=== PATIENT | female | born 1955 | race Caucasian/White ===

== ENCOUNTER 2020-10-25 12:53 | Emergency (ER) | payer MEDICARE, OTHER ==
[~2020-10-25] VITALS: Ht 175.3 cm; Wt 97.7 kg
[2020-10-25 13:47] LABS: BASOPHILS % (AUTO) 1 % (0-1); EOSINOPHILS % (AUTO) 1 % (1-7); LYMPHOCYTES % (AUTO) 21 % (22-44); MEAN CORPUSCULAR HEMOGLOBIN 34.5 pg (27.0-34.8); MEAN CORPUSCULAR HGB CONC 34.3 g/dL (32.4-35.8); MEAN PLATELET VOLUME 7.9 fL (7.4-10.4); MONOCYTES % (AUTO) 8 % (2-9); NEUTROPHILS % (AUTO) 69 % (42-75); PLATELET COUNT 338 x10^3/uL (130-400); RED BLOOD COUNT 3.26 x10^6/uL (3.82-5.3); RED CELL DISTRIBUTION WIDTH 12.7 % (9.6-15.2)
[2020-10-25 13:54] LABS: MD NO
[2020-10-25 14:00] LABS: ALBUMIN 2.5 g/dL (3.4-5.0); ANION GAP 4 mmol/L (5-15); CALCIUM 8.2 mg/dL (8.5-10.1); CHLORIDE 111 mmol/L (98-107); CREATININE 1.03 mg/dL (0.55-1.02)
[2020-10-25 14:02] LABS: SALICYLATE LEVEL < 1.7 mg/dL (2.8-20.0)
[2020-10-25] MEDS ORDERED: OXYcodone/APAP 5/325MG TABLET PO ONE (14:30)
[2020-10-25] MEDS ORDERED: OXYcodone/APAP 5/325MG TABLET ONE (14:31)
--- NOTE | 2020-10-25 16:10 | NUR ---
REPORT RECEIVED FROM HERBERT [place]. ASSUMING PRIMARY CARE OF PT.
--- NOTE | 2020-10-25 16:49 | NUR ---
PT REPOSITIONED FOR COMFORT. ADDITIONAL BLANKETS AND BEAR HUGGER PROVIDER. PT IS TEARFUL AT THIS TIME. RN WENT OVER POC WITH PT. PT VERBALIZED UNDERSTANDING.
--- NOTE | 2020-10-25 18:12 | NUR ---
PER ERMD PT IS STABLE FOR DC. NO NEED FOR ADMISSION AT THIS TIME. RN WENT INTO ROOM TO RECHECK VS. PT'S BP 90/43 HR 76. RN INFORMED ERMD. INDIGO WOULD LIKE RN TO PROVIDE PT WITH ORAL FLUIDS AND TO RECHECK PT'S BP. RN PROVIDED PT WITH APPLE JUICE. PT SITTING UP DRINKING WITHOUT ANY DISTRESS. RN TO HELP PT GET DRESS AFTER PT FINISHES APPLE JUICE.
[2020-10-25 18:46] VITALS: BP 98/45
--- NOTE | 2020-10-25 18:46 | NUR ---
RN HELPED PT GET DRESSED. PT DC HOME IN A STABLE CONDITION. TAXI VOUCHER PROVIDED TO PT. PT WHEELED OUT TO ER ENTRANCE TO AWAITING TAXI. RN CALLED VISUAL NACERT TO SET UP THE RIDE.
== END 2020-10-25 18:48 | disposition home or self-care (01) ==
LOC: ED 14:54
DX: S61.412A Laceration without foreign body of left hand, initial encounter (principal); F43.21 Adjustment disorder with depressed mood; R62.7 Adult failure to thrive; F42.9 Obsessive-compulsive disorder, unspecified; I63.9 Cerebral infarction, unspecified; E78.00 Pure hypercholesterolemia, unspecified; Z86.73 Personal history of transient ischemic attack (TIA), and cerebral infarction without residual deficits; Z68.31 Body mass index [BMI] 31.0-31.9, adult; X83.8XXA Intentional self-harm by other specified means, initial encounter; Y93.89 Activity, other specified; Y92.89 Other specified places as the place of occurrence of the external cause; Y99.8 Other external cause status
CPT/HCPCS: 36415; 71045; 80048; 80299; 80320; 80329; 82040; 84443; 85025; 93005; 99285; G0480